=== PATIENT | female | born 1965 | race Caucasian/White ===

== ENCOUNTER 2025-02-28 08:02 | Emergency (ER) | payer SELFPAY ==
--- NOTE | ~2025-02-28 | XR_ITS ---
EXAM/PROCEDURE: XR chest 2V - 02/28/2025 8:20 CDT HISTORY: 59 years old Female with sob TECHNIQUE: Two view(s) of the chest. COMPARISON: None available. FINDINGS: LUNGS/ PLEURA: Mild vascular congestion with increased interstitial markings. HEART/ MEDIASTINUM: Mild cardiomegaly. BONES: Degenerative changes. OTHER: Visualized upper abdomen is unremarkable. IMPRESSION: Mild CHF. Superimposed infection cannot be excluded. Clinical correlation is recommended. Short-term follow-up chest radiograph is recommended after appropriate clinical therapy. Reviewed, dictated and finalized at location A. IMPRESSION: Mild CHF. Superimposed infection cannot be excluded. Clinical correlation is re commended. Short-term follow-up chest radiograph is recommended after appropria te clinical therapy.
--- NOTE | ~2025-02-28 | CT_ITS ---
EXAMINATION: CTA chest PE protocol DATE: 02/28/2025 10:31 CDT INDICATION: Shortness of breath. Elevated d-dimer. TECHNIQUE: Computed tomographic angiography (CTA) of the chest was performed with 100 mL Omnipaque-35 0 intravenous contrast. The dose-length product was 1054.82 mGy-cm. Maximum intensity projection 3D-r econstructions of the aorta and other arteries were constructed by the technologist on a separate wor kstation. Automated exposure control and iterative reconstruction technique were employed. COMPARISON: None. FINDINGS: Cardiomegaly. No significant pleural or pericardial effusion. No endobronchial lesions. The re is a 5 mm right middle lobe nodule, image 64. Dependent atelectasis. Study is technically adequate for evaluation of central pulmonary arteries. Evaluation of peripheral pulmonary arteries limited by motion artifact contrast bolus timing. No large central pulmonary embolism. No significant pleural o r pericardial effusion. Cardiomegaly. There is lingular airspace consolidation, consistent with atele ctasis. IMPRESSION: 1. No large central pulmonary embolism. Evaluation of peripheral pulmonary arteries limited by motion . 2: Cardiomegaly. Reviewed, dictated and finalized at location A. IMPRESSION: 1. No large central pulmonary embolism. Evaluation of peripheral pulmonary prerna radha limited by motion. 2: Cardiomegaly.
--- NOTE | 2025-02-28 08:05 | ECG_ITS ---
Test Date: 2025-02-28 08:15:13 Measurements Intervals [place] Rate: 91 P: 60 WV: 182 QRS: -30 QRSD: 120 T: 88 QT: 367 QTc: 452 Interpretive Statements SINUS RHYTHM WITH FREQUENT VENTRICULAR PREMATURE COMPLEXES WITH OCCASIONAL SUPRAVENTRICULAR PREMATURE COMPLEXES POSSIBLE LEFT ATRIAL ENLARGEMENT [-0.1mV P-WAVE IN V1/V2] POSSIBLE RIGHT VENTRICULAR CONDUCTION DELAY [RSR (QR) IN V1/V2] LEFT VENTRICULAR HYPERTROPHY AND ST-T CHANGE [VOLTAGE CRITERIA PLUS ST/T ABNORMALITY] POSSIBLE ANTERIOR MYOCARDIAL INFARCTION , OF INDETERMINATE AGE [30 ms Q WAVE IN V3/V4, OR R < 0.2 mV IN V4] No previous ECG available for comparison Electronically Signed On 02-28-2025 16:50:12 CDT by Azul Melchor M.D.
[2025-02-28 08:07] VITALS: BP 193/81; PULSE 94; RESP 13; TEMP 36.4; O2SAT 98
--- OUTSIDE RECORDS SUMMARY | 2025-02-28 08:07 | XMS_ITS | Data Portability ---
Author Organization [facility] Address [address] [place] [address] Assessment No assessment recorded. Plan of Treatment Reminders Order Date Submit Date Provider Last Modified By Organization Details Last Modified Time Details Appointments ANY 15 2024 09:30A M Beth Ferrari MD Not available Not available Not available Lab CMP, serum or plasma 2024 025 [facility], [address] [place] [address], [address], [place], [address], 12/08/2024 11:25:23 lipid panel, serum 2024 025 [facility], [address] [place] [address], [facility] [address], [place], [address], 12/08/2024 11:25:22 TSH, ultra-s ensitiv e, serum 2024 025 [facility], [address] [place] [address], [facility] [address], [place], [address], 12/08/2024 11:25:25 TSH + free T4, serum 2024 025 [facility], [address] [place] [address], [address], [place], [address], 12/08/2024 11:25:20 vitamin D, 25-hydr oxy, total, serum 2024 025 LISA AGUIRRE, [address], [address], [place], [address], 12/08/2024 11:25:26 uric acid, serum or plasma 2023 024 LISA AGUIRRE, [facility], [address], [place], [address], 04/15/2024 08:31:32 iron + TIBC + ferriti n, serum 2023 024 LISA SHAW, [facility], [address], [place], [address], 04/15/2024 08:31:33 vitamin B12 + folate, serum or blood 2023 024 LISA AGUIRRE, [facility], [address], [place], [address], 04/15/2024 08:31:31 thiamin e, QN, blood 2023 024 LISA AGUIRRE, [facility], [address], [place], [address], 04/18/2024 06:07:39 CMP, serum or plasma 2023 024 LISA SHAW, [facility], [address], [place], [address], 04/15/2024 08:31:30 lipid panel, serum 2023 024 LISA AGUIRRE, [facility], [address], [place], [address], 04/15/2024 08:31:29 TSH, ultra-s ensitiv e, serum 2023 024 LISA SHAW, [facility], [address], [place], [address], 04/15/2024 08:31:31 CBC 2023 024 LISA AGUIRRE, [address], [address], [place], [address], 04/15/2024 08:31:33 uric acid, serum or plasma 2022 023 LISA AGUIRRE, [address], [address], [place], [address], 12/31/2022 06:20:22 CMP, serum or plasma 2022 023 LISA AGUIRRE, [address], [address], [place], [address], 12/31/2022 06:20:21 lipid panel, serum 2022 023 LISA AG[facility]IRRE, [facility], [address], [place], [address], 12/31/2022 06:20:21 vitamin D, 25-hydr oxy, total, serum 2022 023 LISA AGUIRRE, [address], [address], [place], [address], 12/31/2022 08:27:11 TSH + free T4, serum 2022 023 LISA AGUIRRE, [address], [address], [place], [address], 12/31/2022 08:27:09 CBC 2022 023 LISA AGUIRRE, [address], [address], [place], [address], 12/31/2022 06:20:23 iron + TIBC + ferriti n, serum 2022 023 [facility], [address], [address], [place], [address], 12/31/2022 08:27:10 Referral None recorde d. Procedures None recorde d. Surgeries None recorde d. Imaging None recorde d. Medication Orders amlodip ine 5 mg tablet 2024 025 [facility], [address] [place], [address], 12/01/2024 11:29:55 lisinop ril 40 mg tablet 2024 025 [facility], [address] [place] [address], [address], 12/01/2024 11:29:57 levothy roxine 150 mcg tablet 2024 025 [facility], [address] [place] [address], [address], 12/01/2024 11:29:56 choleca lcifero l (vitami n D3) 50 mcg (2,000 unit) capsule 2024 025 [facility], [address] [place] [address], [address], 12/01/2024 11:29:54 atorvas tatin 40 mg tablet 2024 025 [facility], [address] [place] [address], [address], 12/01/2024 11:29:55 clonaze trenton 0.5 mg tablet 2023 024 [facility], [address] [place] [address], [address], 04/14/2024 13:08:04 atorvas tatin 20 mg tablet 2023 024 [email or web address] [address] [place] [address], [address], 04/28/2024 18:01:39 lisinop ril 40 mg tablet 2023 024 [facility], [address] [place] [address], [address], 04/14/2024 13:07:58 amlodip ine 5 mg tablet 2023 024 [facility], [address] [place] [address], [address], 04/14/2024 13:07:56 choleca lcifero l (vitami n D3) 50 mcg (2,000 unit) capsule 2023 024 [facility], [address] [place] [address], [address], 04/14/2024 13:07:57 levothy roxine 150 mcg tablet 2023 024 [facility], [address] [place] [address], [address], 04/14/2024 13:07:57 atorvas tatin 20 mg tablet [email or web address] [facility] [address] [facility], [address] [place] [address], [address], 04/20/2024 06:54:41 lisinop ril 40 mg tablet 2022 023 [facility], [address] [place] [address], [address], 12/30/2022 13:13:07 amlodip ine 5 mg tablet 2022 023 [facility], [address] [place], [address], 12/30/2022 13:13:08 levothy roxine 150 mcg tablet 2022 023 [facility], [address] [place] [address], [address], 12/30/2022 13:13:09 lisinop ril 40 mg tablet 2021 022 [facility], [address] [place] [address], [address], 01/15/2022 10:48:46 ibuprof en 600 mg tablet 2020 021 [facility], [address] [place] [address], [address], 12/30/2022 12:49:24 ibuprof en 600 mg tablet 2020 021 [facility], [address] [place] [address], [id number], 12/30/2022 12:49:24 Patient TargetsNo targets recorded. Patient Instructions Encounter Date Encounter Id Patient Instructions Last Modified By Organization Details Last Modified Time 12/30/2022 [id number] gastroesophageal reflux disease (GERD): care instructions [email or web address] Not available 12/30/2022 13:13:00 A healthy lifest yle: care instructions [email or web address] Not available 12/30/2022 13:13:01 high cholesterol : care instructions [email or web address] Not available 12/30/2022 13:13:00 learning about h igh blood pressure Not available 12/30/2022 13:13:01 hypothyroidism: care instructions [email or web address] Not available 12/30/2022 13:13:01 iron deficiency anemia: care instructions Not available 12/30/2022 13:13:00 04/14/2024 [id number] When You Want to Lose Weight: Care Instructions [email or web address] Not available 04/14/2024 13:07:45 high cholesterol : care instructions Not available 04/14/2024 13:07:45 anemia: care instructions Not available 04/14/2024 13:07:45 hypothyroidism: care instructions [email or web address] Not available 04/14/2024 13:07:44 learning about m ood disorders [email or web address] Not available 04/14/2024 13:07:45 Reason for Referral None Reported. Results Created Date Observation Date Name Description Value Unit Range Abnormal Flag Note LastModifiedBy Organization Detail LastModifiedTime 07/12/20 21 07/13/2021 URIC ACID uric acid 8.5 mg/dL 3.0-7. 2 above high normal Thera peuti c targe t for gout patie nts: <6.0 Not Available [facility] ([facility]) [address] [facility], [place], [address], 07/13/2021 08:14:42 09/25/19 22 10/01/2021 COMPL IANCE DRUG LOR SIS, UR summary report (summary) FINAL ===== ===== ===== ===== ===== ===== ===== ===== ===== ===== ===== ===== ===== === TOXAS SURE COMP DRUG LOR SIS,U R ===== ===== ===== ===== ===== ===== ===== ===== ===== ===== ===== ===== ===== === Test Resul t Flag Units Drug Prese nt Codei ne 217 ng/mg creat Morph ine 221 ng/mg creat Normo rphin e 68 ng/mg creat Sourc es of codei ne inclu de sched uled presc ripti on medic ation s; morph ine is an expec wing metab olite of codei ne. Other sourc es of morph ine inclu de sched uled presc ripti on medic ation s or as a metab olite of heroi n. Nabilo rphin e is an expec wing metab olite of morph ine. Aceta minop hen PRESE NT ===== ===== ===== ===== ===== ===== ===== ===== ===== ===== ===== ===== ===== === Test Resul t Flag Units Ref Range Creat inine 94 mg/dL >=20 ===== ===== ===== ===== ===== ===== ===== ===== ===== ===== ===== ===== ===== === Decla red Medic ation s: Medic ation list was not provi ded. ===== ===== ===== ===== ===== ===== ===== ===== ===== ===== ===== ===== ===== === For clini wilman consu ltati on, pleas e call . ===== ===== ===== ===== ===== ===== ===== ===== ===== ===== ===== ===== ===== === Not Available [facility] [address] [facility], [place], [address], 10/02/2021 06:12:32 09/25/19 22 10/01/2021 COMPL IANCE DRUG LOR SIS, UR pdf . Not Available [facility] [address] [facility] [address], [place], [address], 10/02/2021 06:12:32 12/31/19 23 12/31/2022 LIPID PANEL cholesterol, total 269.0 mg/dL 140.0- 200.0 above high normal Not Available [facility] [address] [place] [address], [address], 12/31/2022 06:20:20 12/31/1912/31/2022 LIPID PANEL triglyceride s 186 mg/dL <=150 above high normal Not Available [facility] [address] [place] [address], [address], 12/31/2022 06:20:20 12/31/1912/31/2022 LIPID PANEL HDL cholesterol 53.9 mg/dL 40.0-1 00.0 Not Available [facility] [address] [place] [address], [address], 12/31/2022 06:20:20 12/31/1912/31/2022 LIPID PANEL VLDL cholesterol wilman 37.20 mg/dL 5.00-4 0.00 Not Available [facility] [address] [place] [address], [address], 12/31/2022 06:20:20 12/31/1912/31/2022 LIPID PANEL LDL chol calc (nih) 180.5 mg/dL 0.0-99 .0 above high normal Not Available [facility] [address] [place], [address], 12/31/2022 06:20:20 12/31/1912/31/2022 COMP. METAB OLIC PANEL (14) glucose 103 mg/dL 65-99 above high normal ANION GP 19.0 mmol/ L N OSMOL 281.0 mOsM/ L N REFER ENCE RANGE : 275.0 -301. 0 Not Available [facility] [address] [place], [address], 12/31/2022 06:20:21 12/31/1912/31/2022 COMP. METAB OLIC PANEL (14) BUN 16 mg/dL 8-26 Not Available [facility] [address] [place] [address], [address], 12/31/2022 06:20:21 12/31/19 23 12/31/2022 COMP. METAB OLIC PANEL (14) creatinine 0.87 mg/dL 0.50-1 .40 Not Available [facility] [address] [place], [address], 12/31/2022 06:20:21 12/31/1912/31/2022 COMP. METAB OLIC PANEL (14) eGFR 78 mL/mi n/1.7 3 >=60 Not Available [facility] [address] [place] [address], [address], 12/31/2022 06:20:21 12/31/19 23 12/31/2022 COMP. METAB OLIC PANEL (14) BUN/creatini ne ratio 19.0 Not Available [facility] [address] [place] [address], [address], 12/31/2022 06:20:21 12/31/19 23 12/31/2022 COMP. METAB OLIC PANEL (14) sodium 140.0 mmol/ L 136.0- 144.0 Not Available [facility] [address] [place] [address], [address], 12/31/2022 06:20:21 12/31/19 23 12/31/2022 COMP. METAB OLIC PANEL (14) potassium 4.2 mmol/ L 3.5-5. 3 Not Available [facility] [address] [place], [address], 12/31/2022 06:20:21 12/31/1912/31/2022 COMP. METAB OLIC PANEL (14) chloride 102 mmol/ l 101-11 1 Not Available [facility] [address] [place] [address], [address], 12/31/2022 06:20:21 12/31/19 23 12/31/2022 COMP. METAB OLIC PANEL (14) carbon dioxide, total 23.9 mmol/ L 21.0-3 2.0 Not Available [facility] [address] [place], [address], 12/31/2022 06:20:21 12/31/19 23 12/31/2022 COMP. METAB OLIC PANEL (14) calcium 10.4 mg/dL 8.2-10 .0 above high normal Not Available [facility] [address] [place], [address], 12/31/2022 06:20:21 12/31/19 23 12/31/2022 COMP. METAB OLIC PANEL (14) protein, total 7.3 g/dL 6.7-8. 2 Not Available [facility] [address] [place], [address], 12/31/2022 06:20:21 12/31/19 23 12/31/2022 COMP. METAB OLIC PANEL (14) albumin 4.5 g/dL 3.5-5. 5 Not Available [facility] [address] [place], [address], 12/31/2022 06:20:21 12/31/1912/31/2022 COMP. METAB OLIC PANEL (14) globulin, total 2.8 g/dL 1.5-4. 5 Not Available [facility] [address] [place], [address], 12/31/2022 06:20:21 12/31/19 23 12/31/2022 COMP. METAB OLIC PANEL (14) A/G ratio 2.0 Not Available [facility] [address] [place], [address], 12/31/2022 06:20:21 12/31/19 23 12/31/2022 COMP. METAB OLIC PANEL (14) bilirubin, total 0.6 mg/dL 0.0-1. 2 Not Available [facility] [address] [place], [address], 12/31/2022 06:20:21 12/31/19 23 12/31/2022 COMP. METAB OLIC PANEL (14) alkaline phosphatase 90.4 IU/L 42.0-1 21.0 Not Available [facility] [address] [place], [address], 12/31/2022 06:20:21 12/31/1912/31/2022 COMP. METAB OLIC PANEL (14) AST (SGOT) 19.8 U/L 10.0-4 2.0 Not Available [facility] [address] [place], [address], 12/31/2022 06:20:21 12/31/1912/31/2022 COMP. METAB OLIC PANEL (14) ALT (SGPT) 22.7 U/L 10.0-6 0.0 Not Available [facility] [address] [place], [address], 12/31/2022 06:20:21 12/31/1912/31/2022 URIC ACID uric acid 7.6 mg/dL 2.6-7. 2 above high normal Not Available [facility] [address] [place], [address], 12/31/2022 06:20:22 12/31/1912/31/2022 CBC, PLATE LET, NO DIFFE RENTI AL WBC 7.4 K/uL 3.4-10 .8 Not Available [facility] [address] [place], [address], 12/31/2022 06:20:23 12/31/1912/31/2022 CBC, PLATE LET, NO DIFFE RENTI AL RBC 4.9 M/uL 4.2-5. 4 Not Available [facility] [address] [place], [address], 12/31/2022 06:20:23 12/31/19 23 12/31/2022 CBC, PLATE LET, NO DIFFE RENTI AL hemoglobin 14.9 g/dL 11.5-1 5.5 Not Available [facility] [address] [place], [address], 12/31/2022 06:20:23 12/31/1912/31/2022 CBC, PLATE LET, NO DIFFE RENTI AL hematocrit 45.6 % 36.0-4 8.0 Not Available [facility] [address] [place], [address], 12/31/2022 06:20:23 12/31/1912/31/2022 CBC, PLATE LET, NO DIFFE RENTI AL MCV 93 fL 80-95 Not Available [facility] [address] [place], [address], 12/31/2022 06:20:23 12/31/1912/31/2022 CBC, PLATE LET, NO DIFFE RENTI AL MCH 31 pg 27-32 Not Available [facility] [address] [place], [address], 12/31/2022 06:20:23 12/31/1912/31/2022 CBC, PLATE LET, NO DIFFE RENTI AL MCHC 33 g/dL 32-36 Not Available [facility] [address] [place], [address], 12/31/2022 06:20:23 12/31/1912/31/2022 CBC, PLATE LET, NO DIFFE RENTI AL RDW 13.5 % 11.5-1 4.5 Not Available [facility] [address] [place], [address], 12/31/2022 06:20:23 12/31/1912/31/2022 CBC, PLATE LET, NO DIFFE RENTI AL platelets 319 K/uL 155-37 9 MPV 9.5 FL 8.9-1 2.7 N Not Available [facility] [address] [place], [address], 12/31/2022 06:20:23 12/31/1912/31/2022 CBC, PLATE LET, NO DIFFE RENTI AL NRBC 0 % Not Available [facility] [address] [place], [address], 12/31/2022 06:20:23 12/31/1912/31/2022 TSH+F REE T4 TSH 1.410 uIU/m L 0.450- 4.500 Not Available [facility] ([facility]) [address] [place], [address], 12/31/2022 08:27:09 12/31/1912/31/2022 TSH+F REE T4 T4,free(dire ct) 1.40 NG/dL 0.82-1 .77 Not Available [facility] ([facility]) [address] [place], [address], 12/31/2022 08:27:09 12/31/1912/31/2022 FE+TI BC+FE R iron bind.cap.(TI BC) 352 ug/dL 250-45 0 Not Available [facility] ([facility]) [address] [place], [address], 12/31/2022 08:27:10 12/31/1912/31/2022 FE+TI BC+FE R UIBC 262 ug/dL 131-42 5 Not Available [facility] ([facility]) [address] [place], [address], 12/31/2022 08:27:10 12/31/1912/31/2022 FE+TI BC+FE R iron 90 ug/dL 27-159 Not Available [facility] ([facility]) [address] [place], [address], 12/31/2022 08:27:10 12/31/1912/31/2022 FE+TI BC+FE R iron saturation 26 % 15-55 Not Available [facility] ([facility]) [address] [facility], [place], [address], 12/31/2022 08:27:10 12/31/1912/31/2022 FE+TI BC+FE R ferritin 153 NG/mL 15-150 above high normal Not Available [facility] ([facility]) [address] [facility], [place], [address], 12/31/2022 08:27:10 12/31/1912/31/2022 VITAM IN D, 25-HY DROXY vitamin D, 25-hydroxy 26.5 NG/mL 30.0-1 00.0 below low normal Vitam in D defic iency has been defin ed by the Insti tute of Medic ine and an Endoc rine Socie ty pract ice guide line as a level of serum 25-OH vitam in D less than 20 ng/mL (1,2) . The Endoc rine Socie ty went on to furth er defin e vitam in D insuf ficie ncy as a level betwe en 21 and 29 ng/mL (2). 1. IOM (Inst itute of Medic ine). 2009. Dieta ry refer ence intak es for calci um and D. Danae schneider [place]: The [facility] . 2. Power dee [place], Bernice allen [place], Kim off-F silvestrear i MORAN, et al. Evalu ation , treat ment, and preve ntion of vitam in D defic iency : an Endoc rine Socie ty clini wilman pract ice guide line. JCEM. 2010; 96(7) :1911 -30. Not Available [facility] ([facility]) [address] [facility], [place], [address], 12/31/2022 08:27:10 04/14/20 24 04/15/2024 LIPID PANEL cholesterol, total 299 mg/dL 100-19 9 above high normal Not Available [facility] ([facility]) [address] [facility], [place], [address], 04/15/2024 08:31:29 04/14/20 24 04/15/2024 LIPID PANEL triglyceride s 224 mg/dL 0-149 above high normal Not Available [facility] ([facility]) [address] [facility] [place], [address], 04/15/2024 08:31:29 04/14/20 24 04/15/2024 LIPID PANEL HDL cholesterol 53 mg/dL >39 Not Available [facility] ([facility]) [address] [facility] [place], [address], 04/15/2024 08:31:29 04/14/20 24 04/15/2024 LIPID PANEL VLDL cholesterol wilman 43 mg/dL 5-40 above high normal Not Available [facility] ([facility]) [address] [facility] [place], [address], 04/15/2024 08:31:29 04/14/20 24 04/15/2024 LIPID PANEL LDL chol calc (nih) 203 mg/dL 0-99 above high normal Not Available [facility] ([facility]) [address] [facility] [place], [address], 04/15/2024 08:31:29 04/14/20 24 04/15/2024 LIPID PANEL LDL calc comment: COMMEN T Consi lewis evalu ating for Famil ial Hyper kaelyn stero lemia (FH), if clini moon indic ated. Not Available [facility] ([facility]) [address] [facility], [place], [address], 04/15/2024 08:31:29 04/14/20 24 04/15/2024 COMP. METAB OLIC PANEL (14) glucose 96 mg/dL 70-99 Not Available [facility] ([facility]) [address] [facility] [place], [address], 04/15/2024 08:31:30 04/14/20 24 04/15/2024 COMP. METAB OLIC PANEL (14) BUN 21 mg/dL 6-24 Not Available [facility] ([facility]) [address] [facility] [place], [address], 04/15/2024 08:31:30 04/14/20 24 04/15/2024 COMP. METAB OLIC PANEL (14) creatinine 0.96 mg/dL 0.57-1 .00 Not Available [facility] ([facility]) [address] [facility] [place], [address], 04/15/2024 08:31:30 04/14/20 24 04/15/2024 COMP. METAB OLIC PANEL (14) eGFR 68 mL/mi n/1.7 3 >59 Not Available [facility] ([facility]) [address] [facility], [place], [address], 04/15/2024 08:31:30 04/14/20 24 04/15/2024 COMP. METAB OLIC PANEL (14) BUN/creatini ne ratio 22 9-23 Not Available [facility] ([facility]) [address] [facility] [place], [address], 04/15/2024 08:31:30 04/14/20 24 04/15/2024 COMP. METAB OLIC PANEL (14) sodium 140 mmol/ L 134-14 4 Not Available [facility] ([facility]) [address] [facility] [place], [address], 04/15/2024 08:31:30 04/14/20 24 04/15/2024 COMP. METAB OLIC PANEL (14) potassium 4.4 mmol/ L 3.5-5. 2 Not Available [facility] ([facility]) [address] [facility] [place], [address], 04/15/2024 08:31:30 04/14/20 24 04/15/2024 COMP. METAB OLIC PANEL (14) chloride 101 mmol/ L 96-106 Not Available [facility] ([facility]) [address], [place], [address], 04/15/2024 08:31:30 04/14/20 24 04/15/2024 COMP. METAB OLIC PANEL (14) carbon dioxide, total 22 mmol/ L 20-29 Not Available [facility] ([facility]) [address], [place], [address], 04/15/2024 08:31:30 04/14/20 24 04/15/2024 COMP. METAB OLIC PANEL (14) calcium 10.5 mg/dL 8.7-10 .2 above high normal Not Available [facility] ([facility]) [address] [place], [address], 04/15/2024 08:31:30 04/14/20 24 04/15/2024 COMP. METAB OLIC PANEL (14) protein, total 7.0 g/dL 6.0-8. 5 Not Available [facility] ([facility]) [address] [place], [address], 04/15/2024 08:31:30 04/14/20 24 04/15/2024 COMP. METAB OLIC PANEL (14) albumin 4.5 g/dL 3.8-4. 9 Not Available [facility] ([facility]) [address] [place], [address], 04/15/2024 08:31:30 04/14/20 24 04/15/2024 COMP. METAB OLIC PANEL (14) globulin, total 2.5 g/dL 1.5-4. 5 Not Available [facility] ([facility]) [address] [place], [address], 04/15/2024 08:31:30 04/14/20 24 04/15/2024 COMP. METAB OLIC PANEL (14) bilirubin, total 0.4 mg/dL 0.0-1. 2 Not Available [facility] ([facility]) [address] [facility], [place], [address], 04/15/2024 08:31:30 04/14/20 24 04/15/2024 COMP. METAB OLIC PANEL (14) alkaline phosphatase 73 IU/L 44-121 Not Available [facility] ([facility]) [address] [facility] [place], [address], 04/15/2024 08:31:30 04/14/20 24 04/15/2024 COMP. METAB OLIC PANEL (14) AST (SGOT) 20 IU/L 0-40 Not Available [facility] ([facility]) [address] [facility] [place], [address], 04/15/2024 08:31:30 04/14/20 24 04/15/2024 COMP. METAB OLIC PANEL (14) ALT (SGPT) 20 IU/L 0-32 Not Available [facility] ([facility]) [address] [facility] [place], [address], 04/15/2024 08:31:30 04/14/20 24 04/15/2024 TSH RFX ON ABNOR MAL TO FREE T4 TSH 1.850 uIU/m L 0.450- 4.500 Not Available [facility] ([facility]) [address] [facility], [place], [address], 04/15/2024 08:31:31 04/14/20 24 04/15/2024 VITAM IN B12 AND FOLAT E vitamin B12 406 pg/mL 232-12 45 Not Available [facility] ([facility]) [address] [facility] [place], [address], 04/15/2024 08:31:31 04/14/20 24 04/15/2024 VITAM IN B12 AND FOLAT E folate (folic acid), serum 11.6 NG/mL >3.0 A serum folat e jean ntrat ion of less than 3.1 ng/mL is consi dered to repre sent clini wilman defic iency . Not Available [facility] ([facility]) [address] [facility], [place], [address], 04/15/2024 08:31:31 04/14/20 24 04/15/2024 URIC ACID uric acid 7.6 mg/dL 3.0-7. 2 above high normal Thera peuti c targe t for gout patie nts: <6.0 Not Available [facility] ([facility]) [address], [place], [address], 04/15/2024 08:31:32 04/14/20 24 04/15/2024 CBC, PLATE LET, NO DIFFE RENTI AL WBC 9.1 [id number] /uL 3.4-10 .8 Not Available [facility] ([facility]) [address] [facility], [place], [address], 04/15/2024 08:31:33 04/14/20 24 04/15/2024 CBC, PLATE LET, NO DIFFE RENTI AL RBC 4.59 x10e6 /uL 3.77-5 .28 Not Available [facility] ([facility]) [address] [facility], [place], [address], 04/15/2024 08:31:33 04/14/20 24 04/15/2024 CBC, PLATE LET, NO DIFFE RENTI AL hemoglobin 14.4 g/dL 11.1-1 5.9 Not Available [facility] ([facility]) [address] [place], [address], 04/15/2024 08:31:33 04/14/20 24 04/15/2024 CBC, PLATE LET, NO DIFFE RENTI AL hematocrit 43.5 % 34.0-4 6.6 Not Available [facility] ([facility]) [address] [facility], [place], [address], 04/15/2024 08:31:33 04/14/20 24 04/15/2024 CBC, PLATE LET, NO DIFFE RENTI AL MCV 95 fL 79-97 Not Available [facility] ([facility]) [address] [facility], [place], [address], 04/15/2024 08:31:33 04/14/20 24 04/15/2024 CBC, PLATE LET, NO DIFFE RENTI AL MCH 31.4 pg 26.6-3 3.0 Not Available [facility] ([facility]) [address] [facility], [place], [address], 04/15/2024 08:31:33 04/14/20 24 04/15/2024 CBC, PLATE LET, NO DIFFE RENTI AL MCHC 33.1 g/dL 31.5-3 5.7 Not Available [facility] ([facility]) [address] [facility], [place], [address], 04/15/2024 08:31:33 04/14/20 24 04/15/2024 CBC, PLATE LET, NO DIFFE RENTI AL RDW 12.7 % 11.7-1 5.4 Not Available [facility] ([facility]) [address] [facility], [place], [address], 04/15/2024 08:31:33 04/14/20 24 04/15/2024 CBC, PLATE LET, NO DIFFE RENTI AL platelets 337 x10e3 /uL 150-45 0 Not Available [facility] ([facility]) [address] [facility], [place], [address], 04/15/2024 08:31:33 04/14/20 24 04/15/2024 FE+TI BC+FE R iron bind.cap.(TI BC) 338 ug/dL 250-45 0 Not Available [facility] ([facility]) [address] [facility], [place], [address], 04/15/2024 08:31:33 04/14/20 24 04/15/2024 FE+TI BC+FE R UIBC 259 ug/dL 131-42 5 Not Available [facility] ([facility]) [address] [place], [address], 04/15/2024 08:31:33 04/14/20 24 04/15/2024 FE+TI BC+FE R iron 79 ug/dL 27-159 Not Available [facility] ([facility]) [address] [place], [address], 04/15/2024 08:31:33 04/14/20 24 04/15/2024 FE+TI BC+FE R iron saturation 23 % 15-55 Not Available [facility] ([facility]) [address] [place], [address], 04/15/2024 08:31:33 04/14/20 24 04/15/2024 FE+TI BC+FE R ferritin 138 NG/mL 15-150 Not Available [facility] ([facility]) [address] [place], [address], 04/15/2024 08:31:33 04/14/20 24 04/18/2024 VITAM IN B1 (THIA MINE) , BLOOD vit. B1, whole blood 120.4 nmol/ L 66.5-2 00.0 Not Available [facility] ([facility]) [address] [place], [address], 04/18/2024 06:07:39 12/08/19 25 12/07/2024 TSH+F REE T4 TSH - uIU/m L Dupli cliff proce dure order ed. Not Available [facility] ([facility]) [address] [place], [address], 12/08/2024 11:25:20 12/08/19 25 12/08/2024 TSH+F REE T4 T4,free(dire ct) 1.49 NG/dL 0.82-1 .77 Not Available [facility] ([facility]) [address] [place], [address], 12/08/2024 11:25:20 12/08/19 25 12/08/2024 LIPID PANEL cholesterol, total 204 mg/dL 100-19 9 above high normal Not Available [facility] ([facility]) [address] [place], [address], 12/08/2024 11:25:22 12/08/19 25 12/08/2024 LIPID PANEL triglyceride s 118 mg/dL 0-149 Not Available [facility] ([facility]) [address] [place], [address], 12/08/2024 11:25:22 12/08/19 25 12/08/2024 LIPID PANEL HDL cholesterol 49 mg/dL >39 Not Available [facility] ([facility]) [address] [place], [address], 12/08/2024 11:25:22 12/08/19 25 12/08/2024 LIPID PANEL VLDL cholesterol wilman 21 mg/dL 5-40 Not Available [facility] ([facility]) [address] [place], [address], 12/08/2024 11:25:22 12/08/19 25 12/08/2024 LIPID PANEL LDL chol calc ([facility]) 134 mg/dL 0-99 above high normal Not Available [facility] ([facility]) [address] [place], [address], 12/08/2024 11:25:22 12/08/19 25 12/08/2024 COMP. METAB OLIC PANEL (14) glucose 100 mg/dL 70-99 above high normal Not Available [facility] ([facility]) [address] [place], [address], 12/08/2024 11:25:23 12/08/19 25 12/08/2024 COMP. METAB OLIC PANEL (14) BUN 20 mg/dL 6-24 Not Available [facility] ([facility]) [address] [place], [address], 12/08/2024 11:25:23 12/08/19 25 12/08/2024 COMP. METAB OLIC PANEL (14) creatinine 0.95 mg/dL 0.57-1 .00 Not Available [facility] ([facility]) [address] [facility], [place], [address], 12/08/2024 11:25:23 12/08/19 25 12/08/2024 COMP. METAB OLIC PANEL (14) eGFR 69 mL/mi n/1.7 3 >59 Not Available [facility] ([facility]) [address] [facility] [place], [address], 12/08/2024 11:25:23 12/08/19 25 12/08/2024 COMP. METAB OLIC PANEL (14) BUN/creatini ne ratio 21 9-23 Not Available [facility] ([facility]) [address] [facility], [place], [address], 12/08/2024 11:25:23 12/08/19 25 12/08/2024 COMP. METAB OLIC PANEL (14) sodium 140 mmol/ L 134-14 4 Not Available [facility] ([facility]) [address] [facility], [place], [address], 12/08/2024 11:25:23 12/08/19 25 12/08/2024 COMP. METAB OLIC PANEL (14) potassium 4.4 mmol/ L 3.5-5. 2 Not Available [facility] ([facility]) [address] [facility] [place], [address], 12/08/2024 11:25:23 12/08/19 25 12/08/2024 COMP. METAB OLIC PANEL (14) chloride 104 mmol/ L 96-106 Not Available [facility] ([facility]) [address] [facility], [place], [address], 12/08/2024 11:25:23 12/08/19 25 12/08/2024 COMP. METAB OLIC PANEL (14) carbon dioxide, total 22 mmol/ L 20- Not Available [facility] ([facility]) [address] [place], [address], 12/08/2024 11:25:23 12/08/19 25 12/08/2024 COMP. METAB OLIC PANEL (14) calcium 9.7 mg/dL 8.7-10 .2 Not Available [facility] ([facility]) [address] [place], [address], 12/08/2024 11:25:23 12/08/19 25 12/08/2024 COMP. METAB OLIC PANEL (14) protein, total 6.8 g/dL 6.0-8. 5 Not Available [facility] ([facility]) [address] [place], [address], 12/08/2024 11:25:23 12/08/19 25 12/08/2024 COMP. METAB OLIC PANEL (14) albumin 4.4 g/dL 3.8-4. 9 Not Available [facility] ([facility]) [address] [place], [address], 12/08/2024 11:25:23 12/08/19 25 12/08/2024 COMP. METAB OLIC PANEL (14) globulin, total 2.4 g/dL 1.5-4. 5 Not Available [facility] ([facility]) [address] [place], [address], 12/08/2024 11:25:23 12/08/19 25 12/08/2024 COMP. METAB OLIC PANEL (14) bilirubin, total 0.7 mg/dL 0.0-1. 2 Not Available [facility] ([facility]) [address] [place], [address], 12/08/2024 11:25:23 12/08/19 25 12/08/2024 COMP. METAB OLIC PANEL (14) alkaline phosphatase 85 IU/L 44-121 Not Available [facility] ([facility]) [address] [place], [address], 12/08/2024 11:25:23 12/08/19 25 12/08/2024 COMP. METAB OLIC PANEL (14) AST (SGOT) 20 IU/L 0-40 Not Available [facility] ([facility]) [address] [place], [address], 12/08/2024 11:25:23 12/08/19 25 12/08/2024 COMP. METAB OLIC PANEL (14) ALT (SGPT) 20 IU/L 0-32 Not Available [facility] ([facility]) [address] [place], [address], 12/08/2024 11:25:23 12/08/19 25 12/08/2024 TSH RFX ON ABNOR MAL TO FREE T4 TSH 1.160 uIU/m L 0.450- 4.500 Not Available [facility] ([facility]) [address] [place], [address], 12/08/2024 11:25:24 12/08/19 25 12/08/2024 VITAM IN D, 25-HY DROXY vitamin D, 25-hydroxy 29.6 NG/mL 30.0-1 00.0 below low normal Vitam in D defic iency has been defin ed by the Insti tute of Medic ine and an Endoc rine Socie ty pract ice guide line as a level of serum 25-OH vitam in D less than 20 ng/mL (1,2) . The Endoc rine Socie ty went on to furth er defin e vitam in D insuf ficie ncy as a level betwe en 21 and 29 ng/mL (2). 1. IOM (Inst itute of Medic ine). 2010. Dieta ry refer ence intmadelin es for calci um and D. Danae schneider [place]: The [facility] Press . 2. Power dee MF, Bernice allen [place], Kim off-F madyson i MORAN, et al. Evalu ation , treat ment, and preve ntion of vitam in D defic iency : an Endoc rine Socie ty clini wilman pract ice guide line. JCEM. 2010; 96(7) :1911 -30. Not Available [facility] ([facility]) [address] [facility], [place], [address], 12/08/2024 11:25:26 Result Notes None recorded. Problems Name Problem SNOMED Code Status Onset Date Resolution Date Notes Provider Name and Address Organization Details Recorded Time Essential hypertensi on [id number] Louise Sánchez MD Attn: Nino ayala,[address] [facility], [place], [place], [address] [place] [address] 2, [facility] - [facility] 6 17:18:54 Hypothyroi dism 69973570 Active Barrington Sánchez MD Attn: Nino ayala,[address] [place], [place], [address] [place] [address] 2, [place] - [facility] 6 17:18:54 Depressive disorder 87789557 Louise Sánchez MD Attn: Nino ayala,[address] [facility], [place], [address] [place] [address] 2, [place] - [facility] 5 12:26:09 Anxiety disorder 392898102 Louise Sánchez MD Attn: Nino ayala,[address] [facility], [place], [address] [place] [address] 2, [place] - [facility] 6 17:18:54 Gastroesop hageal reflux disease 281301515 Louise Sánchez MD Attn: Nino g,[address] [facility], [place], [address] [place] [address] 2, [place] - [facility] 6 17:18:54 Anemia 647990663 Louise Sánchez MD Attn: Nino ayala,[address] [place], [place], [address] [place] [address] 2, [place] - [facility] 5 16:37:48 Allergic rhinitis 05309023 Louise Sánchez MD Attn: Nino ayala,[address] [facility], [place], [address], [place] - [facility] 6 17:18:54 Foot callus 194459951 Active 2016 Barrington Sánchez MD Attn: Nino g,[address] [place], [address], [place] [facility] 7 11:02:20 Iron deficiency anemia 84810921 Active 2016 Barrington Sánchez MD Attn: Nino g,[address] [facility], [place], [address], [place] [facility] 7 14:01:55 Morbid obesity 720681580 Active 2018 Barrington Sánchez MD Attn: Nino ayala,[address] [place], [address], [place] [facility] 9 11:55:17 Active immunizati on Active 2018 Barrington Sánchez MD Attn: Nino ayala,[address] [place], [address], [place] [facility] 9 11:58:30 Hyperlipid emia 50483277 Active 2020 Barrington Sánchez MD Attn: Nino ayala,[address] [place], [address], [place] [facility] 1 17:43:10 Pain in toe 356552096 Active 2020 Great toe Barrington Sánchez MD Attn: Nino ayala,[address] [place], [address], [place] [facility] 13:22:43 Vitamin D below reference range 722233225 Active 2020 Barrington Sánchez MD Attn: Nino ayala,[address] [place], [address], [place] [facility] 1 12:14:03 Pain in finger 98724661 Active 2020 Fifth finger Barrington Sánchez MD Attn: Nino ayala,[address] [facility], [place], [address], [place] - [facility] 1 16:06:29 Pain in finger of right hand [id number] 09 Active 2020 Barrington Sánchez MD Attn: Nino ayala,[address] [facility], [place], [address], [place] - [facility] 1 16:06:58 Hyperurice kiya 81027248 Active 2021 Barrington Sánchez MD Attn: Nino ayala,[address] [facility], [place], [address], [place] - [facility] 2 10:44:43 Mood disorder 02178903 Active 2023 Barrington Sánchez MD Attn: Nino ayala,[address] [facility], [place], [address], [place] - [facility] 4 12:56:33 Problem Notes None recorded. Medical Equipment None Reported. Allergies No known drug allergies Medications Name Sig Start Date Stop Date Status Note LastModified by Organization Details LastModified Time vitamin d3 (kaelyn) 50mcg cap TAKE 1 CAPSULE BY MOUTH ONCE DAILY active Not Available Not Available No t Available atorvasta tin 40 mg tablet Take 1 tablet every day by oral route in the evening. 2024 active Not Available Not Available Not Avai lable atorvasta tin 20 mg tablet Take 1 tablet every day by oral route. 04/20 completed increase d to 40 Not Available Not Available Not Available lisinopri l 20 mg-hydroc hlorothia zide 12.5 mg tablet Take 1 tablet by mouth once daily 10/13 completed Not Available Not Available Not Available ranitidin e 300 mg tablet Take 1 tablet twice a day by oral route as needed. 09/23 completed Not Available Not Available Not Available Tubersol 5 tub. unit/0.1 mL intraderm al injection solution 09/23 completed Result: Negative Not Available Not Available Not Available clonazepa m 0.5 mg tablet Take 1 tablet(s ) twice a day by oral route as needed. 2024 active Not Available Not Available Not Avai lable clonazepa m 1 mg tablet Take 1 tablet twice a day by oral route. 09/23 completed Not Available Not Available Not Available acetamino phen 300 mg-codein e 30 mg tablet Take 1 tablet 3 times a day by oral route as needed. 01/15 completed Not Available Not Available Not Available amlodipin e 5 mg tablet Take 1 tablet every day by oral route. 2024 active Not Available Not Available Not Avai lable levothyro xine 150 mcg tablet Take 1 tablet every day by oral route. 2024 active Not Available Not Available Not Avai lable ergocalci ferol (vitamin D2) 1,250 mcg (50,000 unit) capsule TAKE 1 CAPSULE BY MOUTH ONCE A WEEK 12/30 completed Not Available Not Available Not Available ibuprofen 600 mg tablet TAKE 1 TABLET BY MOUTH THREE TIMES DAILY WITH MEALS 12/30 completed Not Available Not Available Not Available ferrous sulfate 325 mg (65 mg iron) tablet,de layed release Take 1 tablet twice a day by oral route. 09/23 completed Not Available Not Available Not Available lisinopri l 40 mg tablet Take 1 tablet every day by oral route. 2024 active Not Available Not Available Not Avai lable cholecalc iferol (vitamin D3) 50 mcg (2,000 unit) capsule Take 1 capsule every day by oral route. 2024 active Not Available Not Available Not Avai lable Flonase Allergy Relief 50 mcg/actua tion nasal spray,paresh pension Take 2 spray(s) every day in each nostril 09/23 completed Not Available Not Available Not Available Vitals Date Recorded Body height Body mass index (BMI) Body weight Heart rate Oxygen saturation Oxygen saturation in Arterial blood by Pulse oximetry Systolic And Diastolic Provider Name and Address Organization Details Last Updated DateTime 5 180.34 cm 45.6 kg/m2 775054. 14 g 84 /min 97 % 97 % 143/69 mm[Hg] Satish Still [place] - [facility] 5 11:09:43 Date Recorded Body height Body mass index (BMI) Body weight Heart rate Body temperature Oxygen saturation Oxygen saturation in Arterial blood by Pulse oximetry Systolic And Diastolic Provider Name and Address Organization Details Last Updated DateTime 3 180.34 cm 44.6 kg/m2 832146. 56 g 96 /min 98.1 [degF] 97 % 97 % 160/94 mm[Hg] Nerissa Blount MA [facility] 3 12:49:07 Date Recorded Body height Body mass index (BMI) Body weight Body temperature Oxygen saturation Oxygen saturation in Arterial blood by Pulse oximetry Heart rate Systolic And Diastolic Provider Name and Address Organization Details Last Updated DateTime 2 180.34 cm 43.8 kg/m2 387710 g 98 [degF] 96 % 96 % 89 /min 158/86 mm[Hg] Nerissa Blount MA [facility] 2 10:20:08 Date Recorded Body height Body mass index (BMI) Body weight Oxygen saturation Oxygen saturation in Arterial blood by Pulse oximetry Heart rate Systolic And Diastolic Provider Name and Address Organization Details Last Updated DateTime 4 180.34 cm 44.6 kg/m2 285862. 56 g 98 % 98 % 82 /min 160/86 mm[Hg] Nerissa Blount MA [facility] 4 12:33:31 Date Recorded Body height Body mass index (BMI) Body weight Body temperature Oxygen saturation Oxygen saturation in Arterial blood by Pulse oximetry Heart rate Systolic And Diastolic Provider Name and Address Organization Details Last Updated DateTime 1 180.34 cm 44.5 kg/m2 727796. 97 g 97.4 [degF] 100 % 100 % 80 /min 148/88 mm[Hg] William England MA [facility] 1 15:32:07 Social History Question Answer Notes LastModified by Organizat ion Details LastModified Time Tobacco Smoking Status Never Smoker SHEELA Odell, [facility] 01/31/2015 11:07:36 What Is Your Level Of Caffeine Consumption? Moderate Information not available 01/31/2015 What Was The Date Of Your Most Recent Tobacco Screening? 12/01/2024 [email or web address] Information not available 12/01/2024 Has Tobacco Cessation Counseling Been Provided? No Information not available 12/30/2022 Sex: Unknown Functional Status Question Answer Note LastModified by Organization D etails LastModified Time Do you or have you ever used any other forms of tobacco or nicotine? No Information not available 12/30/2022 What is your level of alcohol consumption? None Information not available 01/31/2015 Mental Status None recorded. Family History Relationship Description Onset Age of this Age Resolved Age Notes LastModified by Organization Details LastModified Time Mother Harmful pattern of use of alcohol [email or web address] Not available 04/2015 15:28:01 Father Diabetes mellitus [email or web address] Not available 04/2015 15:28:01 Father Hypertensive disorder [email or web address] Not available 04/2015 15:28:01 Sister Disorder of thyroid gland [email or web address] Not available 04/2015 15:28:01 Sister Hypertensive disorder [email or web address] Not available 04/2015 15:28:01 Brother Harmful pattern of use of alcohol [email or web address] Not available 04/2015 15:28:01 Brother Hypertensive disorder [email or web address] Not available 04/2015 15:28:01 Brother Migraine [email or web address] Not avail able 02/15/2015 15:28:01 Medical History Condition Response High Blood Pressure Y Thyroid Problems Y Gynecological HistoryNo gynecological history recorded. Obstetrics History GPAL:G 0 P 0 0 0 0 Immunizations Vaccine Type Date Status Note Provider Nam e and Address Organization Details Recorded Time Influenza, split virus, quadrivalent, preservative 8 completed Not Available [facility] 08/27/2019 02:36:00 Influenza, split virus, quadrivalent, preservative 9 completed Not Available [facility] 08/27/2019 02:38:15 Past Encounters Encounter ID Performer Location Encounter Start Date Encounter Closed Date Diagnosis/Indication Diagnosis SNOMED-CT Code Diagnosis ICD10 Code Diagnosis Note [id number] MD Shantelle Thompson (Adult Med) [address] [place] [address] 01/31/2015 10:46:30 01/31/2015 15:16:00 Essential hypertension 23154198 Hypothyroidism 88965345 Depressive disorder 09000337 Anxiety disorder 501304453 Gastroesop hageal reflux disease 797178534 [id number] Barrington Sánchez MD [facility] (Adult Med) [address] [place] [id number] 02/15/2015 14:59:26 02/19/2015 09:45:59 Hypothyroidism 02255865 Depressive disorder 50370325 Essential hypertension 99307472 Anemia 876148315 Will address at next OV [id number] Barrington Sánchez MD [facility] (Adult Med) [address] [place] [id number] 05/08/2015 11:21:50 05/08/2015 17:13:43 Anxiety disorder 086637873 changed patient dosage of clonazepam to 1 pill bid patient will run out and call for refill. Essential hypertension 31068531 Gastroesop hageal reflux disease 100998827 Depressive disorder 70892374 Hypothyroidism 70547777 Tuberculos is screening 944627827 Allergic rhinitis 73124132 [id number] [facility] [address] [place] [id number] 02/06/2016 16:27:10 02/06/2016 17:55:32 Anxiety disorder 972048654 F41.9 changed patient dosage of clonazepam to 1 pill bid patient will run out and call for refill. Essential hypertension 85341565 I10 Allergic rhinitis 710372 04 J30.9 Hypothyroidism 43849148 E03.9 Gastroesop hageal reflux disease 759963528 K21.9 [id number] Barrington Sánchez MD [facility] (Adult Med) [address] [place] [id number] 11/12/2016 09:56:47 11/12/2016 10:59:38 Hypothyroidism 65977930 E03.9 Essential hypertension 57687438 I10 Anxiety disorder 2783151 06 F41.9 changed patient dosage of clonazepam to 1 pill bid patient will run out and call for refill. Anemia 613841348 D64.9 Will address at next OV Foot callus 322315718 L8 4 recommende d profession al removal of residual lesion [id number] Barrington Sánchez MD [facility] (Adult Med) [address] [place] [id number] 01/19/2018 17:04:11 01/20/2018 10:28:20 Essential hypertension 44136546 I10 Hypothyroidism 34002860 E03.9 Depressive disorder 3548 9007 F32.9 Anemia 546430024 D64.9 Gastroesop hageal reflux disease 432737356 K21.9 Anxiety disorder 7964032 06 F41.9 Iron defic iency anemia 91983336 D50.9 [id number] [facility] [address] [place] [id number] 04/06/2018 14:45:57 04/07/2018 11:37:23 Anxiety disorder 266447390 F41.9 Increase clonazepam dose Hypothyroidism 65658306 E03.9 Gastroesop hageal reflux disease 762698381 K21.9 [id number] MD Shantelle Thompson (Adult Med) [address] [place] [id number] 05/04/2018 15:01:56 05/05/2018 12:22:55 Administration of influenza vaccine 11535573 Z23 [id number] MD Shantelle Thompson (Adult Med) [address] [place] [id number] 0 09/23/2018 12:38:33 09/24/2018 11:06:37 Hypothyroidism 20542157 E03.9 Essential hypertension 57139374 I10 [id number] MD Shantelle Thompson (Adult Med) [address] [place] [id number] 05/25/2019 11:04:04 05/26/2019 11:53:00 Essential hypertension 41725913 I10 Hypothyroidism 27401110 E03.9 Iron defic iency anemia 28914920 D50.9 Morbid obesity 860532267 E66.01 Active immunization 3387 9002 Z23 [id number] MD Shantelle Thompson (Adult Med) [address] [place] [id number] 03/15/2020 10:14:26 03/16/2020 11:00:11 Anxiety disorder 418649278 F41.9 [id number] MD Shantelle Thompson (Adult Med) [address] [place] [id number] 10/10/2020 10:07:15 10/11/2020 10:43:28 Essential hypertension 85257614 I10 Hypothyroidism 46868731 E03.9 Iron defic iency anemia 44459858 D50.9 Morbid obesity 752555589 E66.01 [id number] MD Shantelle Thompson (Adult Med) [address] [place] [id number] 04/29/2021 09:05:38 05/09/2021 03:46:50 [id number] MD Shantelle Thompson (Adult Med) [address] [place] [id number] 0 05/23/2021 12:19:52 05/28/2021 13:39:28 Pain in toe 820012573 M79.674 Morbid obesity 058652578 E66.01 [id number] MD Shantelle Thompson (Adult Med) [address] [place] [address] 07/29/2021 15:13:48 07/30/2021 09:04:02 Pain in finger 99657053 M79.709 [id number] MD Shantelle Thompson (Adult Med) [address] [place] [id number] 0 01/15/2022 09:56:44 01/16/2022 12:44:44 Essential hypertension 05158267 I10 Increase lisinopril . D/C HCTZ. labs on return Hyperuricemia 16608110 E 79.0 Will discontinu e diuretic. Decrease red meat, beer, lose weight, control BP Hyperlipidemia 03107203 E78.5 Anemia 311958453 D64.9 [id number] MD Shantelle Thompson (Adult Med) [address] [place] [id number] 12/30/2022 12:31:35 12/31/2022 15:02:05 Morbid obesity 895351671 E66.01 Vitamin D below reference range 355298325 E55.9 Essential hypertension 38556352 I10 Add amlodipine Gastroesop hageal reflux disease 269745215 K21.9 Hyperlipidemia 74580292 E78.5 Hyperuricemia 38366762 E 79.0 Will discontinu e diuretic. Decrease red meat, beer, lose weight, control BP Hypothyroidism 31194593 E03.9 Iron defic iency anemia 90890401 D50.9 [id number] MD Shantelle Thompson (Adult Med) [address] [place] [phone] 04/14/2024 12:05:33 04/15/2024 15:10:44 Hyperlipidemia 90235722 E78.5 Hypothyroidism 07250372 E03.9 Anemia 404019768 D64.9 Mood disorder 11272768 F 39 Morbid obesity 282451465 E66.01 Vitamin D below reference range 550569502 E55.9 Anxiety disorder [id number] 06 F41.9 Essential hypertension 34940468 I10 Add amlodipine Hyperuricemia 82426181 E 79.0 Will discontinu e diuretic. Decrease red meat, beer, lose weight, control BP [id number] MD Shantelle Thompson (Adult Med) [address] [place] [phone] 12/01/2024 10:44:50 12/05/2024 13:48:47 Essential hypertension 18623294 I10 Hyperlipidemia 15903378 E78.5 Vitamin D below reference range 682881447 E55.9 Hypothyroidism 14928643 E03.9 Health Concerns Section Related Observation LastModified by Organization Detai ls LastModified Time None Recorded Concern Status LastModified by Organization Details LastModified Time None Recorded Advance Directives Directive None Recorded Payers Insurance Date Sequence Insurance Name Policy Number Policy Watkins Covered Member ID Watkins Member ID Guarantor Name 08/01/2019 SLIDING FEE SCHEDULE - DISCOUNT Breana Neuling 06/26/2021 SLIDING FEE SCHEDULE - DISCOUNT Breana ling 04/14/2024 SLIDING FEE SCHEDULE - DISCOUNT Breana 04/12/2020 2 *SELF PAY* Susi sa 04/12/2020 SLIDING FEE SCHEDULE - DISCOUNT Breana ling 11/12/2016 SLIDING FEE SCHEDULE - DISCOUNT Breana 11/12/2016 SLIDING FEE SCHEDULE - DISCOUNT Breana ling 02/06/2016 1 *SELF PAY* Li sa 01/04/2021 SLIDING FEE SCHEDULE - DISCOUNT Breana Neuling 01/19/2018 SLIDING FEE SCHEDULE - DISCOUNT Breana Neuling 04/14/2024 SLIDING FEE SCHEDULE - DISCOUNT Breana 12/30/2022 SLIDING FEE SCHEDULE - DISCOUNT Breana Neuling Notes Date Note Type Note Provider Name and Address Organization Details Recorded Time 1 text/html Has had pain in right fifth finger for the past four days. pt has had uric acid elevated x 2. Barrington Sánchez MD Attn: Accounting,[address] [facility], [place], [address], [facility] 07/29/2021 16:12:08 2 text/html No longer on red meats due to recent gout episode. Otherwise doing well. Will stop hydrochlorothiazide Barrington Sánchez MD Attn: Accounting,[address] [facility], [place], [address], [facility] 01/15/2022 10:48:58 3 text/html Needs med refilled. 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 has episodes of anxiety and depression associated with caring for her mother who has anxiety Barrington Sánchez MD Attn: Accounting,[address] [place], [address], [facility] 04/14/2024 13:07:54 5 text/html Here for f/u and refills Barrington Sánchez MD Attn: Accounting[address] [place], [address], [facility] 12/01/2024 11:30:15 OBGyn Episode No OBEpisode recorded.
--- OUTSIDE RECORDS SUMMARY | 2025-02-28 08:07 | XMS_ITS | Clinical Summary ---
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 Gender Identity Not on file Sexual Orientation Not on file Plan of Treatment Health Maintenance Due Date Last Done Comments Hepatitis C Virus (HCV) Screening 1965 TdaP Immunization 1965 Hepatitis B Immunization (1 of 3 - 19+ 3-dose series) 1984 Pap Smear 1986 Cervical Cancer Screening (CCS) 1995 HPV/Cotest 1995 Colonoscopy 2010 Colorectal Cancer Screening 2010 Cologuard 2015 Immunochemical Fecal Occult Blood 2015 Mammogram 2015 Pneumococcal Immunization (5 0+ years) (1 of 1 - PCV) 2015 Zoster Immunization (1 of 2) 2015 Influenza Immunization (#1) 04/10/202405/10, 05/04/2018 SARS-COV-2 Immunization ( - season) 2024 Respiratory Syncytial Virus (RSV) Immunization (Adult) (1 - 1-dose 75+ series) 2040 Meningococcal Immunization (ACWY) Aged Out No longer eligible b ased on patient's age to complete this topic Pneumococcal Immunization Combined Aged Out No longer eligible b ased on patient's age to complete this topic Rotavirus Immunization Aged Out No lo nger eligible based on patient's age to complete this topic
[2025-02-28 08:24] LABS: Hematocrit 46.8 % (37.0-47.0); Hemoglobin 15.6 g/dL (12.0-15.0); Immature Granulocyte Percent A 0.2 % (0-0.5); Lymphocytes Absolute Auto 1.60 K/mm3 (0.9-3.2); Mean Corpuscular HGB Conc 33.3 g/dl (32-36); Mean Corpuscular Hemoglobin 30.1 pg (26-34); Mean Corpuscular Volume 90.3 fl (80-100); Nucleated Red Blood Cells Absolute Auto 0.000 K/mm3 (0.0-0.012); Nucleated Red Blood Cells Perc 0.0 % (0.0-0.2); Platelet Count Result 304 k/mm3 (150-375); Red Blood Count 5.18 M/mm3 (4.2-5.4); White Blood Count 8.4 K/mm3 (4.5-10.0)
[2025-02-28 08:39] LABS: Alanine Aminotransferase 29 U/L (6-35); Albumin Level 4.7 g/dL (3.5-5.1); Alkaline Phosphatase 76 U/L (38-126); Anion Gap 10 mmol/L (4-12); Aspartate Amino Transferase 29 U/L (14-36); Bilirubin,Total 0.8 mg/dL (0.2-1.3); Blood Urea Nitrogen 21 mg/dL (7-17); Calcium 10.2 mg/dL (8.4-10.2); Carbon Dioxide 26 mmol/L (22-30); Chloride 108 mmol/L (98-107); Estimated CRCL calculation 95 ml/min; Estimated Glomerular Filt Rate > 60; Glucose 113 mg/dL (65-110); Potassium 3.7 mmol/L (3.4-5.0); Sodium 144 mmol/L (137-145); Total Protein 8.6 g/dL (6.3-8.2)
--- NOTE | 2025-02-28 09:20 | ED_ITS ---
HPI - SOB/Dyspnea General Chief Complaint: Shortness of Breath/Dyspnea Stated Complaint: I'm having a hard time breathing Time Seen by Provider: 02/28/25 08:59 History of Present Illness HPI Narrative: Patient is a 59-year-old female presents to the ER with increased shortness of breath that started on Thursday, 3 days ago. She reports she 1st noticed it with increased humidity on night. Patient reports she has never had these symptoms in the past. She denies any chest pain but endorses ?tightness. Patient verses a history of high blood pressure, thyroid issues, and depression. She reports she is medicated for all of them. Patient denies any cough, recent fevers, lower extremity edema, or back pain. Related Data Allergies Allergy/AdvReac Type Severity Reaction Status Date / Time No Known Allergies Allergy Verified 02/28/25 08:16 Review of Systems 2 Review of Systems: All systems reviewed & are unremarkable except as noted in HPI and below Exam 2 Narrative: GENERAL: Well appearing, well-nourished, non-toxic, in no acute distress. HEAD: Normocephalic, atraumatic. NECK: Supple. No adenopathy, no masses. RESPIRATORY: Airway patent, respirations nonlabored. Clear to auscultation bilaterally, no rales, rhonchi, wheezing. CARDIOVASCULAR: Regular rate and rhythm without murmurs, rubs, or gallops. Peripheral pulses 2+ and equal bilaterally. ABDOMINAL: Soft, nontender, nondistended, no hepatosplenomegaly. Normoactive BS. MUSCULOSKELETAL: Moves all extremities. Strength/ROM intact without gross deformities. SKIN: Warm, dry, normal color. No rashes. NEURO: A&O X3. Speech clear. Cranial nerves II-XII intact. No ataxic movements. PSYCHIATRIC: Anxious mood and affect. Normal interaction. Course Vital Signs Vital signs: Vital Signs Temperature 36.4 C 02/28/25 08:07 Pulse Rate 94 02/28/25 08:07 Respiratory Rate 13 02/28/25 08:07 Blood Pressure 193/81 H 02/28/25 08:07 Pulse Oximetry 98 02/28/25 08:07 Oxygen Delivery Room Air 02/28/25 08:07 Temperature 36.4 C 02/28/25 08:07 Pulse Rate 94 02/28/25 08:07 Respiratory Rate 13 02/28/25 08:07 Blood Pressure 193/81 H 02/28/25 08:07 Pulse Oximetry 98 02/28/25 08:07 Oxygen Delivery Room Air 02/28/25 08:07 MDM - SOB/Dyspnea MDM Narrative Medical decision making narrative: Patient is a 59-year-old female presents to the ER with increased shortness of breath that started on Thursday, 3 days ago. She reports she 1st noticed it with increased humidity on night. Patient reports she has never had these symptoms in the past. She denies any chest pain but endorses ?tightness. Patient verses a history of high blood pressure, thyroid issues, and depression. She reports she is medicated for all of them. Patient denies any cough, recent fevers, lower extremity edema, or back pain. Labs Ordered: CBC, CMP, troponin, magnesium, PTT, INR, TSH, D-dimer, UA Imaging Ordered: CTA chest PE protocol Medications Ordered: 1 L normal saline IV bolus, Ativan 0.5 mg IV Results: Pt's CT scan indicates Cardiomegaly. No significant pleural or pericardial effusion. No endobronchial lesions. There is a 5 mm right middle lobe nodule, image 64. Dependent atelectasis. Study is technically adequate for evaluation of central pulmonary arteries. Evaluation of peripheral pulmonary arteries limited by motion artifact contrast bolus timing. No large central pulmonary embolism. No significant pleural or pericardial effusion. Cardiomegaly. There is lingular airspace consolidation, consistent with atelectasis. Diagnosis: Cardiomegaly, anxiety Risks: HEART score: low risk HEART Score for Major Cardiac Events from [email or web address] on 02/28/2025 All calculations should be rechecked by clinician prior to use RESULT SUMMARY: 3 points Low Score (0-3 points) Risk of MACE of 0.9-1.7%. INPUTS: History ?> 1 = Moderately suspicious EKG ?> 0 = Normal Age ?> 1 = 45-64 Risk factors ?> 1 = 1-2 risk factors Initial troponin ?> 0 = <=ormal limit Consults: cardiology (outpatient) Patient Education/Shared MDM: Results of lab work and imaging shared with patient. She endorses improvement of symptoms following medication administration. Patient strongly advised to maintain hydration status upon discharge and follow-up with her PCP as soon as possible. She will be discharged home with a prescription for Hydroxyzine. Strict return precautions provided. Patient verbalized understanding and is in agreement with plan. Vital signs stable at time of discharge. All questions answered. Lab Data Attestation: I reviewed the patient's lab results. 02/28/25 08:18 02/28/25 08:18 Labs: Lab Results 02/28/25 02/28/25 Range/Units 08:18 09:36 WBC 8.4 (4.5-10.0) K/mm3 RBC 5.18 (4.2-5.4) M/mm3 Hgb 15.6 H (12.0-15.0) g/dL Hct 46.8 (37.0-47.0) % MCV 90.3 (80-100) fl MCH 30.1 (26-34) pg MCHC 33.3 (32-36) g/dl RDW 13.3 (11.5-14.5) % Plt Count 304 (150-375) k/mm3 MPV 8.8 (7.4-10.4) fl Immature Gran % (Auto) 0.2 (0-0.5) % Neut % (Auto) 70.4 (45.5-73.1) % Lymph % (Auto) 19.0 (18.3-44.2) % Jones % (Auto) 8.1 (2.6-8.5) % Eos % (Auto) 1.9 (0-4.4) % Baso % (Auto) 0.4 (0.2-1.2) % Lymph # (Auto) 1.60 (0.9-3.2) K/mm3 Jones # (Auto) 0.7 H (0.1-0.6) K/mm3 Eos # (Auto) 0.2 (0-0.3) K/mm3 Baso # (Auto) 0.0 (0.0-0.1) K/mm3 Abs Immat Gran (auto) 0.02 (0.00-0.031) K/mm3 Absolute Neuts (auto) 5.9 (1.3-6.7) K/mm3 Absolute Nucleated RBC 0.000 (0.0-0.012) K/mm3 Nucleated RBC % 0.0 (0.0-0.2) % PT 12.9 (11.1-14.7) Seconds INR 1.0 APTT 26.0 (22.3-36.8) Seconds D-Dimer 0.97 H (<0.48) ug/mL Sodium 144 (137-145) mmol/L Potassium 3.7 (3.4-5.0) mmol/L Chloride 108 H (98-107) mmol/L Carbon Dioxide 26 (22-30) mmol/L Anion Gap 10 (4-12) mmol/L BUN 21 H (7-17) mg/dL Creatinine 0.92 (0.7-1.0) mg/dL Estim Creat Clear Calc 95 ml/min Estimated GFR > 60 (59 - ) Glucose 113 H (65-110) mg/dL Calcium 10.2 (8.4-10.2) mg/dL Magnesium 2.0 (1.6-2.3) mg/dL Total Bilirubin 0.8 (0.2-1.3) mg/dL AST 29 (14-36) U/L ALT 29 (6-35) U/L Alkaline Phosphatase 76 (38-126) U/L Troponin I 0.017 (0.000-0.034) ng/mL NT-Pro-B Natriuret Pep 277 H (19.9-100) pg/mL Total Protein 8.6 H (6.3-8.2) g/dL Albumin 4.7 (3.5-5.1) g/dL TSH (Reflex) 0.978 (0.465-4.68) uIU/mL Urine Color Yellow (Yellow) Urine Appearance Clear (Clear) Urine pH 7.0 (5.0-9.0) Ur Specific [place] 1.003 (1.001-1.035) Urine Protein Negative (Negative) mg/dL Urine Glucose (UA) Negative (Negative) mg/dL Urine Ketones Negative (Negative) mg/dL Ur Blood (Man) Negative (Negative) Urine Nitrate Negative (Negative) Urine Bilirubin Negative (Negative) Urine Urobilinogen 0.2 (<2.0) mg/dL Add Ur Microanalysis Reviewed Leukocyte Esterase Rfl Trace H (Negative) LEXI/UL Urine RBC 0-2 (0-2) /hpf Urine WBC 0-5 (0-3) /hpf Ur Squamous Epith Cells None seen (Few) /hpf Urine Bacteria None seen /hpf Urine Casts 0-2 Imaging Data Attestation: I personally reviewed and interpreted this imaging study as follows: Radiologist's impression: Impressions Chest X-Ray 02/28/25 08:34 IMPRESSION: Mild CHF. Superimposed infection cannot be excluded. Clinical correlation is recommended. Short-term follow-up chest radiograph is recommended after appropriate clinical therapy. Chest CTA 02/28/25 10:30 IMPRESSION: 1. No large central pulmonary embolism. Evaluation of peripheral pulmonary arteries limited by motion. 2: Cardiomegaly. Discharge Plan Discharge Clinical Impression: Cardiomegaly, Anxiety, Shortness of breath Patient Disposition: Home Condition: Stable Instructions: Antibiotic Form, Anxiety (ED) Additional Instructions: Please return to the ER with any worsening symptoms. Follow-up with primary care provider and Cardiology as soon as possible. Take all medications as prescribed, including regularly scheduled medications. You may take hydroxyzine to help control your anxiety symptoms. Patient Language: Djiboutian Prescriptions: New hydroxyzine HCl 25 mg tablet 25 mg PO TID PRN (Reason: anxiety) Qty: 20 0RF Follow-up/Referrals: PHYSICIAN,LITHOGRAPH PRESS OPERATOR [facility] [Non-Staff] - Azul Melchor MD [Physician] - (cardiology) Time of Disposition: 11:03
[2025-02-28] MEDS: SODIUM CHLORIDE 0.9% IV 1,000 ML 999 ML IV CONT (09:25)
[2025-02-28] MEDS: LORazepam INJ (*CRX) 2 MG/ML VIAL 0.5 MG IV PUSH (09:29)
--- OUTSIDE RECORDS SUMMARY | 2025-02-28 09:41 | XMS_ITS | Clinical Summary ---
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
[2025-02-28 09:47] LABS: Magnesium 2.0 mg/dL (1.6-2.3)
[2025-02-28 09:52] LABS: INR 1.0; Prothrombin Time 12.9 Seconds (11.1-14.7)
[2025-02-28 09:53] LABS: Partial Thromboplastin Time 26.0 Seconds (22.3-36.8)
[2025-02-28 09:53] LABS: Add Urine Microscopic? YES; Appearance Urine Clear (Clear); Glucose Urine UA Negative (Negative); Leukocyte Esterase Ur Trace LEU/UL (Negative); Need Manual Microscopic Reviewed; Nitrate Urine Negative (Negative); Non Pathogenic Casts 0-2; Specific Grav Ur 1.003 (1.001-1.035)
[2025-02-28 09:57] LABS: NT Pro B Type Natriuretic Pept 277 pg/mL (19.9-100); Troponin I 0.017 ng/mL (0.000-0.034)
[2025-02-28 10:28] LABS: Thyroid Stimulating Hormone Reflex 0.978 uIU/mL (0.465-4.68)
[2025-02-28 11:50] VITALS: BP 173/55; PULSE 85; RESP 16; O2SAT 98
== END 2025-02-28 11:51 | disposition home or self-care (01) ==
PROVIDERS: Student in an Organized Health Care Education/Training Program; Emergency Provider Registered Nurse
DX: R06.02 Shortness of breath (principal); I51.7 Cardiomegaly; F41.9 Anxiety disorder, unspecified
CPT/HCPCS: 36415; 71046; 71275; 80053; 81001; 83735; 83880; 84443; 84484; 85025; 85380; 85610; 85730; 93005; 96361; 96374; 99284; J2060; J7030; Q9967